=== PATIENT | male | born 1940 | race Hispanic/Latino ===

== ENCOUNTER 2017-10-14 20:31 | Inpatient (IN) | payer MEDICARE ==
[~2017-10-14] VITALS: Ht 160 cm; Wt 64.6 kg
[~2017-10-14 20:31] MED LIST: AMIODARONE HCL200 MG PO; BUPROPION HCL100 MG PO; CLOPIDOGREL75 MG PO; ELIQUIS PO; FENOFIBRATE145 MG PO; FLAGYL250 MG; GABAPENTIN300 MG PO; GLIMEPIRIDE2 MG PO; JANUMET 50-5001 EACH PO; JANUMET XR 50-1 EACH PO; LEVAQUIN500 MG PO; LEVOTHYROXINE50 MCG PO; LISINOPRIL10 MG PO; MECLIZINE HCL12.5 MG PO; METOPROLOL SUCC50 MG PO; NAMENDA10 MG PO; PANTOPRAZOLE SO40 MG PO; PRAVASTATIN SOD40 MG PO; VIIBRYD40 MG PO
[2017-10-14 21:46] LABS: BASOPHILS % 0.4 % (0.0-1.0); EOSINOPHILS % 0.3 % (0.0-6.0); HEMOGLOBIN 13.9 g/dL (14.0-18.0); LYMPHOCYTES # (AUTO) 0.7 (1.0-3.2); LYMPHOCYTES % 9.8 % (18.0-39.1); MEAN CORPUSCULAR HEMOGLOBIN 29.3 pg (28-32); MEAN CORPUSCULAR HGB CONC 33.1 g/dL (31-35); MEAN CORPUSCULAR VOLUME 88.4 fL (81-99); MONOCYTES # (AUTO) 0.5 (0.2-0.8); MONOCYTES % 6.9 % (4.4-11.3); NEUTROPHILS % 81.4 % (38.7-80.0); PLATELET COUNT 592 x10e3/uL (140-360); RED BLOOD COUNT 4.75 x10e6/uL (4.3-5.7); RED CELL DISTRIBUTION WIDTH 14.9 % (11.7-14.4)
[2017-10-14 21:54] LABS: ALBUMIN 2.9 g/dL (3.5-5.0); ALBUMIN/GLOBULIN RATIO 0.7 (0.8-2.0); ANION GAP 16.1 mmol/L (8-16); CALCIUM 9.7 mg/dL (8.4-10.2); CREATININE, SERUM 2.07 mg/dL (0.72-1.25); POTASSIUM 4.1 mmol/L (3.5-5.1)
[2017-10-14 22:00] LABS: CREATINE KINASE MB 1.4 ng/mL (0.00-5.00)
--- NOTE | 2017-10-14 22:31 | Diagnostic Imaging Report ---
EXAMINATION: Head CT without contrast. HISTORY:Behavioral changes, altered mental status. COMPARISON:Multiple prior studies, most recent CT brain from 09/09/2017. TECHNIQUE: Multidetector axial images were obtained from the foramen magnum to the vertex without contrast. The images were reconstructed using brain and bone algorithms. Thin section brain images were reformatted into coronal and sagittal planes. Intravenous contrast: None IMAGE QUALITY: Acceptable. FINDINGS: Skull/scalp: Right parietal scalp thickened soft tissue possibly represents scar. Parenchyma: Nonspecific few, scattered supratentorial white matter patchy hypodensity are likely related to small vessel ischemic changes. No acute hemorrhage, mass or acute major vascular territorial infarct. Arteries: Atherosclerotic calcification in bilateral carotid siphon and V4 segment of the vertebral arteries. Dural sinuses: No abnormal density suggestive of thrombosis. Ventricles: No hydrocephalus or displacement. Extra-axial spaces: No abnormal density. Brain volume: Generalized age-related cerebral volume loss. Craniocervical junction: No mass, Chiari malformation, or basilar invagination. Sella: No mass. Paranasal/mastoid sinuses: Imaged portions unremarkable. IMPRESSION: No acute intracranial abnormality. Chronic findings: Generalized age-related cerebral volume loss. Mild supratentorial white matter microvascular ischemic changes. Signed by: Dr. Guillermina Berger M.D. on 10/14/2017 10:27 PM
--- NOTE | 2017-10-14 22:35 | Diagnostic Imaging Report ---
EXAMINATION: CHEST SINGLE (PORTABLE) INDICATION: Cough. COMPARISON: 05/29/2017 FINDINGS: TUBES and LINES: AICD is intact. LUNGS: Lungs are well inflated. Right lower lobe airspace opacity with air bronchogram compatible with pneumonia PLEURA: No pleural effusion or pneumothorax. HEART AND MEDIASTINUM: The cardiomediastinal silhouette is unremarkable. There are atherosclerotic calcifications within the aorta. Midline sternotomy wires are intact. BONES AND SOFT TISSUES: No acute osseous lesion. Soft tissues are unremarkable. UPPER ABDOMEN: No free air under the diaphragm. IMPRESSION: Right lung base airspace disease compatible with pneumonia Signed by: Dr. Saroj Collins M.D. on 10/14/2017 10:31 PM
[2017-10-14 22:41] LABS: KETONES,URINE TRACE (NEGATIVE); LEUKOCYTE ESTERASE ,URINE TRACE (NEGATIVE); NITRITE,URINE NEGATIVE (NEGATIVE); URINE UROBILINOGEN 12 mg/dL (0.2 - 1)
[2017-10-14 22:45] LABS: BILIRUBIN,URINE 2+ (NEGATIVE); CLARITY,URINE CLOUDY (CLEAR); COLOR,URINE AMBER (YELLOW); PROTEIN,URINE DIPSTICK 2+ (NEGATIVE)
[2017-10-14 22:54] LABS: AMORPHOUS SEDIMENT,URINE MODERATE (FEW); BACTERIA,URINE MODERATE /HPF; EPITHELIAL CELLS,URINE FEW /LPF; WBC,URINE (MAN) 21-50 /HPF (0-5)
[2017-10-14] MEDS ORDERED: HALOPERIDOL LACTATE 5 MG/ML VIAL ONE (23:05)
[2017-10-14] MEDS ORDERED: HALOPERIDOL LACTATE 5 MG/ML VIAL IM ONE (23:15)
[2017-10-14] MEDS ORDERED: SODIUM CHLORIDE FLUSH 10 ML SYR INJ PRN (23:15)
[2017-10-14] MEDS ORDERED: DEXTROSE 50% SYRINGE 50 ML IV PRN (23:15)
[2017-10-14] MEDS ORDERED: AZITHROMYCIN 500MG/SOD CHL 0.9% 250ML BAG IV SCH (23:15)
[2017-10-14] MEDS ORDERED: MECLIZINE HCL 12.5 MG TAB PO PRN (23:15)
[2017-10-14] MEDS: CEFTRIAXONE SOD 1 GM VIAL IV SCH (23:44)
[2017-10-14] MEDS: SODIUM CHLORIDE 0.9% 1000ML 1,000 ML IV SCH (23:44)
[2017-10-15] MEDS: AZITHROMYCIN 500MG/NS 250 ML 250 ML IV SCH ×2 (00:16→23:29)
[2017-10-15 01:10] VITALS: BP 140/79
[2017-10-15 01:42] VITALS: BP 140/79
[2017-10-15 01:53] VITALS: BP 140/79
[2017-10-15 06:02] LABS: BASOPHILS % 0.5 % (0.0-1.0); EOSINOPHILS # (AUTO) 0.1 (0.0-0.4); EOSINOPHILS % 0.9 % (0.0-6.0); HEMATOCRIT 34.7 % (38.2-49.6); HEMOGLOBIN 11.5 g/dL (14.0-18.0); LYMPHOCYTES # (AUTO) 0.9 (1.0-3.2); LYMPHOCYTES % 14.2 % (18.0-39.1); MEAN CORPUSCULAR HEMOGLOBIN 29.2 pg (28-32); MEAN CORPUSCULAR HGB CONC 33.1 g/dL (31-35); MEAN CORPUSCULAR VOLUME 88.1 fL (81-99); MONOCYTES # (AUTO) 0.5 (0.2-0.8); NEUTROPHILS # (AUTO) 4.8 (2.1-6.9); NEUTROPHILS % 75.5 % (38.7-80.0); PLATELET COUNT 496 x10e3/uL (140-360); RED BLOOD COUNT 3.94 x10e6/uL (4.3-5.7); RED CELL DISTRIBUTION WIDTH 14.9 % (11.7-14.4)
[2017-10-15 06:05] VITALS: BP 122/52
[2017-10-15 06:20] LABS: ALBUMIN 2.4 g/dL (3.5-5.0); ALBUMIN/GLOBULIN RATIO 0.7 (0.8-2.0); ANION GAP 11.5 mmol/L (8-16); CALCIUM 8.8 mg/dL (8.4-10.2); CREATININE, SERUM 1.58 mg/dL (0.72-1.25); POTASSIUM 3.5 mmol/L (3.5-5.1)
[2017-10-15] MEDS: INSULIN REGULAR, HUMAN 100 UNIT/1 ML 3ML VIAL SQ SCH ×4 (07:30→21:00)
[2017-10-15 07:53] VITALS: BP 154/77
--- NOTE | 2017-10-15 07:54 | History and Physical ---
TIME: 7 a.m. CHIEF COMPLAINT: Confusion. HISTORY OF PRESENT ILLNESS: This is a 77-year-old man with confusion, and brought to the hospital. Found to have a urinary tract infection. He is admitted for further evaluation and management. Overnight, patient was agitated and attempted to get out of bed and get out of a window from his room. He was given Haldol. PAST MEDICAL HISTORY: Altered mental status, fall, acute kidney injury in the setting of chronic kidney disease, stage 3, diabetes mellitus, type 2, Alzheimer dementia, hypothyroidism, coronary artery disease with history of coronary artery bypass grafting, sick sinus syndrome, status post permanent pacemaker placement, hypertension, unspecified psychosis, dementia with acute psychosis, severe anemia, cardiac arrhythmia. PAST SURGICAL HISTORY: Permanent pacemaker placement. ALLERGIES: PER ELECTRONIC MEDICAL RECORD. FAMILY HISTORY/SOCIAL HISTORY: No alcohol, illicits or cigarettes. MEDICATIONS: Per electronic medical record. REVIEW OF SYSTEMS: Unreliable. PHYSICAL EXAMINATION VITAL SIGNS: Have been reviewed. GENERAL: A tired-appearing man resting in bed. HEENT: Anicteric. CARDIOVASCULAR: Normal S1 and S2. LUNGS: Moderate breath sounds. ABDOMEN: Soft and nondistended. He has tenderness in the suprapubic region. : He has a Hernadez in place with a small amount of blood at the Hernadez insertion site. EXTREMITIES: No edema. SKIN: Dry. PSYCHIATRIC: Flat affect. NEUROLOGICAL: Alert but confused. Moves all extremities. LABS: Reviewed. MEDICATIONS: Reviewed. ASSESSMENT: A 77-year-old man with: 1. Acute metabolic encephalopathy/acute delirium secondary to urinary tract infection. 2. Urinary tract infection. 3. Acute transaminitis. 4. Dementia with acute psychosis. 5. Acute kidney injury in the setting of chronic kidney disease, stage 3. 6. Right lung pneumonia. 7. Cardiac arrhythmia. PLAN 1. Continue azithromycin and ceftriaxone for pneumonia. 2. Continue ceftriaxone for urinary tract infection. Follow up cultures. 3. Haldol p.r.n. for agitation, acute psychosis and delirium. 4. Continue apixaban and amiodarone and metoprolol for cardiac arrhythmia treatment. 5. Continue memantine and bupropion for dementia and mood. 6. Continue on Protonix for GI prophylaxis with apixaban use. 7. Physical therapy consultation. Will attempt to reach family again. Job#: [id number] GHAZALA
[2017-10-15] MEDS: APIXABAN 5 MG TABLET PO SCH ×2 (09:00→17:00)
[2017-10-15] MEDS: FENOFIBRATE 145 MG TAB PO SCH (09:00)
[2017-10-15] MEDS ORDERED: NON-FORMULARY MEDICATION (Vilazodone Hydrochloride (Viibryd) 40 MG) PO SCH (09:00)
[2017-10-15] MEDS: PANTOPRAZOLE SOD 40 MG TABEC PO SCH (09:00)
[2017-10-15] MEDS: BUPROPION HCL 150 MG TABCR PO SCH (09:00)
[2017-10-15] MEDS ORDERED: FENOFIBRATE 145 MG TAB PO SCH (09:00)
[2017-10-15] MEDS: VILAZODONE 40 MG PO SCH (09:00)
[2017-10-15] MEDS: CLOPIDOGREL BISULFATE 75 MG TAB PO SCH (09:00)
[2017-10-15] MEDS: SODIUM CHLORIDE 0.9% 1000ML 1,000 ML IV SCH (12:31)
[2017-10-15 14:06] LABS: CREATINE KINASE MB 2.3 ng/mL (0.00-5.00)
[2017-10-15 20:00] VITALS: BP 149/81
[2017-10-15] MEDS: MEMANTINE 10 MG TAB PO SCH (21:30)
[2017-10-15] MEDS: LEVOTHYROXINE SODIUM 50 MCG TAB PO SCH (21:30)
[2017-10-15] MEDS: PRAVASTATIN 20 MG TAB PO SCH (21:30)
[2017-10-15] MEDS: GABAPENTIN 300 MG CAP PO SCH (21:30)
[2017-10-15] MEDS: METOPROLOL SUCCINATE 50 MG TAB XL PO SCH (21:30)
[2017-10-15] MEDS: AMIODARONE HCL 200 MG TAB PO SCH (21:30)
[2017-10-15] MEDS: HALOPERIDOL 5 MG TAB PO PRN (21:35)
[2017-10-15] MEDS: CEFTRIAXONE SOD 1 GM VIAL IV SCH (23:15)
[2017-10-15] MEDS: MORPHINE SULFATE 2 MG/ML SYR IV PRN (23:16)
[2017-10-16] VITALS: BP 146/77
[2017-10-16] MEDS: SODIUM CHLORIDE 0.9% 1000ML 1,000 ML IV SCH ×2 (05:58→13:34)
[2017-10-16] MEDS: LEVOTHYROXINE SODIUM 50 MCG TAB PO SCH (05:59)
[2017-10-16] MEDS: INSULIN REGULAR, HUMAN 100 UNIT/1 ML 3ML VIAL SQ SCH ×4 (07:30→21:00)
[2017-10-16 07:53] VITALS: BP 132/66
[2017-10-16] MEDS: APIXABAN 5 MG TABLET PO SCH ×2 (09:00→17:00)
[2017-10-16] MEDS: PANTOPRAZOLE SOD 40 MG TABEC PO SCH (09:00)
[2017-10-16] MEDS: BUPROPION HCL 150 MG TABCR PO SCH (09:00)
[2017-10-16] MEDS: FENOFIBRATE 145 MG TAB PO SCH (09:00)
[2017-10-16] MEDS: CLOPIDOGREL BISULFATE 75 MG TAB PO SCH (09:00)
[2017-10-16] MEDS: VILAZODONE 40 MG PO SCH (09:00)
[2017-10-16 13:09] VITALS: BP 154/80
[2017-10-16 17:35] VITALS: BP 115/67
[2017-10-16] MEDS: HALOPERIDOL 5 MG TAB PO PRN (19:00)
[2017-10-16 20:00] VITALS: BP 163/74
[2017-10-16] MEDS: MEMANTINE 10 MG TAB PO SCH (21:00)
[2017-10-16] MEDS: GABAPENTIN 300 MG CAP PO SCH (21:00)
[2017-10-16] MEDS: AMIODARONE HCL 200 MG TAB PO SCH (21:00)
[2017-10-16] MEDS: PRAVASTATIN 20 MG TAB PO SCH (21:00)
[2017-10-16] MEDS: METOPROLOL SUCCINATE 50 MG TAB XL PO SCH (21:00)
[2017-10-16] MEDS: MORPHINE SULFATE 2 MG/ML SYR IV PRN (23:00)
[2017-10-16] MEDS: CEFTRIAXONE SOD 1 GM VIAL IV SCH (23:15)
[2017-10-16] MEDS: AZITHROMYCIN 500MG/NS 250 ML 250 ML IV SCH (23:16)
[2017-10-17] VITALS: BP 148/66
[2017-10-17 04:00] VITALS: BP 142/60
[2017-10-17] MEDS: SODIUM CHLORIDE 0.9% 1000ML 1,000 ML IV SCH ×2 (04:31→20:00)
[2017-10-17] MEDS: LEVOTHYROXINE SODIUM 50 MCG TAB PO SCH (05:26)
[2017-10-17 07:00] VITALS: BP 145/65
[2017-10-17] MEDS: INSULIN REGULAR, HUMAN 100 UNIT/1 ML 3ML VIAL SQ SCH ×4 (07:30→21:00)
[2017-10-17] MEDS: FENOFIBRATE 145 MG TAB PO SCH (09:35)
[2017-10-17] MEDS: APIXABAN 5 MG TABLET PO SCH ×2 (09:35→16:48)
[2017-10-17] MEDS: CLOPIDOGREL BISULFATE 75 MG TAB PO SCH (09:35)
[2017-10-17] MEDS: BUPROPION HCL 150 MG TABCR PO SCH (09:35)
[2017-10-17] MEDS: VILAZODONE 40 MG PO SCH (09:35)
[2017-10-17] MEDS: PANTOPRAZOLE SOD 40 MG TABEC PO SCH (09:35)
[2017-10-17 10:51] VITALS: BP 145/65
--- NOTE | 2017-10-17 11:06 | Progress Note ---
DATE: October 16, 2017 at 2:15 p.m. SUBJECTIVE: Overnight less confused. REVIEW OF SYSTEMS: Denies any chest pain. OBJECTIVE VITAL SIGNS: Reviewed. GENERAL APPEARANCE: A tired-appearing woman resting in the bed. HEENT: Anicteric. CARDIOVASCULAR: Normal S1 and S2. No murmurs. LUNGS: Reduced breath sounds at the bases. ABDOMEN: Soft. He has suprapubic area mild tenderness, improved. : : Hernadez catheter. EXTREMITIES: There is no edema. NEUROLOGIC: Alert and oriented x2. Moving all extremities. SKIN: Dry. PSYCHIATRIC: Flat affect. LABS: Reviewed. MEDICATIONS: Reviewed. ASSESSMENT: A 77-year-old man. 1. Acute metabolic encephalopathy/acute delirium secondary to urinary tract infection. 2. Urinary tract infection. 3. Acute transaminitis. 4. Dementia with acute psychosis. 5. Right lung pneumonia. 6. Acute kidney injury in the setting of chronic kidney disease, stage 3. 7. Cardiac arrhythmia. PLAN: 1. Continue IV antibiotics for pneumonia and urinary tract infection. 2. Follow up cultures. 3. Continue p.r.n. Haldol for agitation. 4. Continue memantine and bupropion and mood stabilizers. 5. Continue current care and follow up cultures. 6. I have discussed the case extensively with multiple family members in the patient's room. 7. Continue Apixaban for cardiac arrhythmia. Job#: [id number]
[2017-10-17 11:39] LABS: ANION GAP 11.3 mmol/L (8-16); BLOOD UREA NITROGEN 11 mg/dL (7-26); BUN/CREATININE RATIO 12 (6-25); CALCIUM 8.3 mg/dL (8.4-10.2); CARBON DIOXIDE 23 mmol/L (22-29); CHLORIDE 107 mmol/L (98-107); CREATININE, SERUM 0.91 mg/dL (0.72-1.25); EST GLOMERULAR FILTRATION RATE > 60 ML/MIN (60-); GLUCOSE 74 mg/dL (74-118); POTASSIUM 3.3 mmol/L (3.5-5.1); SODIUM 138 mmol/L (136-145)
[2017-10-17 16:40] VITALS: BP 151/68
[2017-10-17 20:00] VITALS: BP 152/77
[2017-10-17] MEDS: AMIODARONE HCL 200 MG TAB PO SCH (21:00)
[2017-10-17] MEDS: METOPROLOL SUCCINATE 50 MG TAB XL PO SCH (21:00)
[2017-10-17] MEDS: MEMANTINE 10 MG TAB PO SCH (21:30)
[2017-10-17] MEDS: HALOPERIDOL 5 MG TAB PO PRN (21:30)
[2017-10-17] MEDS: GABAPENTIN 300 MG CAP PO SCH (21:30)
[2017-10-17] MEDS: PRAVASTATIN 20 MG TAB PO SCH (21:30)
[2017-10-17] MEDS: CEFTRIAXONE SOD 1 GM VIAL IV SCH (23:20)
[2017-10-18] VITALS: BP 144/84
[2017-10-18] MEDS: AZITHROMYCIN 500MG/NS 250 ML 250 ML IV SCH ×2 (00:15→23:45)
[2017-10-18] MEDS: MORPHINE SULFATE 5 MG/ML VIAL IV PRN ×2 (00:33→21:36)
[2017-10-18 02:08] VITALS: BP 151/68
[2017-10-18 04:00] VITALS: BP 150/81
--- NOTE | 2017-10-18 04:43 | Progress Note ---
DATE: October 17, 2017 TIME: 11:17 a.m. OVERNIGHT: No events. REVIEW OF SYSTEMS: Denies any dizziness. OBJECTIVE VITAL SIGNS: Reviewed. GENERAL APPEARANCE: A tired-appearing man resting in the bed. HEENT: Anicteric. CARDIOVASCULAR: Normal S1 and S2. LUNGS: Moderate breath sounds. ABDOMEN: Soft. He has suprapubic tenderness that is resolved. EXTREMITIES: No edema. SKIN: Dry. PSYCHIATRIC: Flat affect. NEUROLOGIC: Alert and oriented times 2. LABS: Reviewed. MEDICATIONS: Reviewed. ASSESSMENT AND PLAN: A 77-year-old man 1. Acute metabolic encephalopathy/acute delirium secondary to urinary tract infection. 2. Urinary tract infection. 3. Acute transaminitis. 4. Dementia with acute psychosis. 5. Right lung pneumonia. 6. Acute kidney injury in the setting of chronic kidney disease, stage 3. 7. Cardiac arrhythmia. PLAN 1. Continue IV antibiotics for pneumonia and urinary tract infection. 2. Follow up cultures. 3. Continue p.r.n. Haldol for agitation. 4. Continue memantine, bupropion and mood stabilizers. 5. Continue physical therapy. 6. Continue apixaban for cardiac arrhythmia. 7. Discharge planning. Job#: [id number]
[2017-10-18] MEDS: LEVOTHYROXINE SODIUM 50 MCG TAB PO SCH (05:24)
[2017-10-18] MEDS: SODIUM CHLORIDE 0.9% 1000ML 1,000 ML IV SCH ×2 (07:11→20:31)
[2017-10-18] MEDS: INSULIN REGULAR, HUMAN 100 UNIT/1 ML 3ML VIAL SQ SCH ×4 (07:30→21:00)
[2017-10-18 08:00] VITALS: BP 156/74
[2017-10-18] MEDS: VILAZODONE 40 MG PO SCH (09:00)
--- NOTE | 2017-10-18 09:34 | Diagnostic Imaging Report ---
PROCEDURE:X-RAY ABDOMEN - KUB COMPARISON:None. INDICATIONS:MID ABDOMINAL TENDERNESS FINDINGS: There is a non-obstructed bowel-gas pattern. There are no calcifications projected over the renal shadows, expected course of the ureters or bladder. There are no acute osseous abnormalities. Degenerative changes of the lumbar spine. Atherosclerotic calcifications. The lung bases are clear. CONCLUSION: No acute radiographic abnormality. Dictated by: Xu Pope M.D. on 10/18/2017 at 9:43 Electronically approved by: Xu Pope M.D. on 10/18/2017 at 9:43
[2017-10-18] MEDS: BUPROPION HCL 150 MG TABCR PO SCH (09:58)
[2017-10-18] MEDS: FENOFIBRATE 145 MG TAB PO SCH (09:58)
[2017-10-18] MEDS: PANTOPRAZOLE SOD 40 MG TABEC PO SCH (09:58)
[2017-10-18] MEDS: APIXABAN 5 MG TABLET PO SCH ×2 (09:58→18:04)
[2017-10-18] MEDS: CLOPIDOGREL BISULFATE 75 MG TAB PO SCH (09:58)
[2017-10-18] MEDS: HALOPERIDOL 5 MG TAB PO PRN ×2 (09:58→18:04)
--- NOTE | 2017-10-18 13:01 | Progress Note ---
DATE: October 18, 2017 TIME: 8:40 a.m. OVERNIGHT: No events. REVIEW OF SYSTEMS: Underlying. OBJECTIVE VITAL SIGNS: Reviewed. GENERAL APPEARANCE: A tired-appearing man, resting in the bed. HEENT: Anicteric. CARDIOVASCULAR: Normal S1 and S2. LUNGS: Moderate breath sounds. ABDOMEN: Soft. He has tenderness in the abdominal region. EXTREMITIES: No edema. SKIN: Dry. PSYCHIATRIC: Flat affect. NEUROLOGIC: Alert and oriented x2. LABS: Reviewed. MEDICATIONS: Reviewed. ASSESSMENT AND PLAN: A 77-year-old man: 1. Acute metabolic encephalopathy/acute delirium secondary to urinary tract infection. 2. Urinary tract infection. 3. Acute transaminitis. 4. Dementia with acute psychosis. 5. Right lung pneumonia. 6. Acute kidney injury in the setting of chronic kidney disease, stage 3. 7. Cardiac arrhythmia. 8. Abdominal pain. PLAN 1. Get KUB. 2. Continue IV antibiotics. 3. Continue p.r.n. Haldol. 4. Continue physical therapy. 5. Continue mood stabilizer. 6. Continue apixaban for cardiac arrhythmia. 7. Discharge planning. 8. Recheck potassium level now. Job#: [id number] PAT
[2017-10-18 15:59] VITALS: BP 141/94
[2017-10-18 20:00] VITALS: BP 140/68
[2017-10-18] MEDS: PRAVASTATIN 20 MG TAB PO SCH (22:00)
[2017-10-18] MEDS: METOPROLOL SUCCINATE 50 MG TAB XL PO SCH (22:00)
[2017-10-18] MEDS: MEMANTINE 10 MG TAB PO SCH (22:37)
[2017-10-18] MEDS: AMIODARONE HCL 200 MG TAB PO SCH (22:37)
[2017-10-18] MEDS: GABAPENTIN 300 MG CAP PO SCH (22:37)
[2017-10-18] MEDS: CEFTRIAXONE SOD 1 GM VIAL IV SCH (23:00)
[2017-10-19] VITALS (9 sets, daily range): BP systolic 105–139; BP diastolic 54–73
[2017-10-19] MEDS: LEVOTHYROXINE SODIUM 50 MCG TAB PO SCH (05:34)
[2017-10-19] MEDS: HALOPERIDOL 5 MG TAB PO PRN (05:34)
[2017-10-19] MEDS: INSULIN REGULAR, HUMAN 100 UNIT/1 ML 3ML VIAL SQ SCH ×4 (07:30→21:00)
[2017-10-19] MEDS: VILAZODONE 40 MG PO SCH (09:00)
[2017-10-19] MEDS: SODIUM CHLORIDE 0.9% 1000ML 1,000 ML IV SCH (09:51)
[2017-10-19] MEDS: APIXABAN 5 MG TABLET PO SCH ×2 (09:59→17:00)
[2017-10-19] MEDS: CLOPIDOGREL BISULFATE 75 MG TAB PO SCH (09:59)
[2017-10-19] MEDS: PANTOPRAZOLE SOD 40 MG TABEC PO SCH (09:59)
[2017-10-19] MEDS: FENOFIBRATE 145 MG TAB PO SCH (09:59)
[2017-10-19] MEDS: QUETIAPINE FUMARATE 25 MG TAB PO SCH ×3 (09:59→23:55)
[2017-10-19] MEDS: BUPROPION HCL 150 MG TABCR PO SCH (09:59)
--- NOTE | 2017-10-19 18:23 | Progress Note ---
DATE: October 19, 2017 TIME OF SERVICE: At 7:15 a.m. SUBJECTIVE: Overnight no events REVIEW OF SYSTEMS: Unreliable. OBJECTIVE VITAL SIGNS: Reviewed. GENERAL APPEARANCE: A tired-appearing man resting in the bed. CARDIOVASCULAR: Normal S1 and S2. LUNGS: Moderate breath sounds, ABDOMEN: Soft and nontender. Nondistended. EXTREMITIES: There is no edema. NEUROLOGIC: Alert and oriented x1. SKIN: Dry. PSYCHIATRIC: Flat affect. LABS: Reviewed. MEDICATIONS: Reviewed. ASSESSMENT : A 77-year-old man. 1. Acute metabolic encephalopathy/acute delirium secondary to urinary tract infection. 2. Urinary tract infection. 3. Acute transaminitis. 4. Dementia with acute psychosis. 5. Right lung pneumonia. 6. Acute kidney injury in the setting of chronic kidney disease, stage 3. 7. Cardiac arrhythmia. 8. Abdominal pain. PLAN 1. Continue supportive care. 2. Continue antibiotics. 3. Continue physical therapy. 4. Skilled facility placement order. 5. Continue Apixaban for cardiac arrhythmia. 6. KUB revealed no abnormal findings. 7. Prophylaxis: Continue regimen. DISPOSITION: Skilled facility placement. Job#: [id number]
[2017-10-19] MEDS: MORPHINE SULFATE 5 MG/ML VIAL IV PRN (20:43)
[2017-10-19] MEDS: METOPROLOL SUCCINATE 50 MG TAB XL PO SCH (21:00)
[2017-10-19] MEDS: MEMANTINE 10 MG TAB PO SCH (21:00)
[2017-10-19] MEDS: AMIODARONE HCL 200 MG TAB PO SCH (21:00)
[2017-10-19] MEDS: GABAPENTIN 300 MG CAP PO SCH (21:00)
[2017-10-19] MEDS: PRAVASTATIN 20 MG TAB PO SCH (21:00)
[2017-10-20] VITALS (34 sets, daily range): BP systolic 85–181; BP diastolic 49–89
[2017-10-20] MEDS: CEFTRIAXONE SOD 1 GM VIAL IV SCH ×2 (00:42→23:15)
[2017-10-20] MEDS: SODIUM CHLORIDE 0.9% 1000ML 1,000 ML IV SCH ×2 (00:45→12:12)
[2017-10-20] MEDS: AZITHROMYCIN 500MG/NS 250 ML 250 ML IV SCH ×2 (00:45→23:45)
[2017-10-20] MEDS: HALOPERIDOL 5 MG TAB PO PRN (00:50)
[2017-10-20] MEDS: LEVOTHYROXINE SODIUM 50 MCG TAB PO SCH (05:20)
[2017-10-20] MEDS: INSULIN REGULAR, HUMAN 100 UNIT/1 ML 3ML VIAL SQ SCH ×4 (07:30→21:00)
[2017-10-20] MEDS: PANTOPRAZOLE SOD 40 MG TABEC PO SCH (09:00)
[2017-10-20] MEDS: BUPROPION HCL 150 MG TABCR PO SCH (09:00)
[2017-10-20] MEDS: CLOPIDOGREL BISULFATE 75 MG TAB PO SCH (09:00)
[2017-10-20] MEDS: VILAZODONE 40 MG PO SCH (09:00)
[2017-10-20] MEDS: APIXABAN 5 MG TABLET PO SCH (09:00)
[2017-10-20] MEDS: FENOFIBRATE 145 MG TAB PO SCH (09:00)
[2017-10-20] MEDS: QUETIAPINE FUMARATE 25 MG TAB PO SCH ×2 (09:00→17:00)
[2017-10-20] MEDS ORDERED: SODIUM CHLORIDE 0.9% 1000ML 1,000 ML ONE (09:45)
[2017-10-20 09:54] LABS: ABG PCO2 32 mmHg (41-51); ABG PH 7.35 (7.31-7.41); ABG PO2 86 mmHg (80-105)
[2017-10-20 09:55] LABS: ABG HCO3 18 mmol/L (23-28)
[2017-10-20 09:56] LABS: BASOPHILS % 0.1 % (0.0-1.0); HEMATOCRIT 34.7 % (38.2-49.6); HEMOGLOBIN 11.6 g/dL (14.0-18.0); LYMPHOCYTES # (AUTO) 0.8 (1.0-3.2); LYMPHOCYTES % 5.1 % (18.0-39.1); MEAN CORPUSCULAR HEMOGLOBIN 29.5 pg (28-32); MEAN CORPUSCULAR HGB CONC 33.4 g/dL (31-35); MEAN CORPUSCULAR VOLUME 88.3 fL (81-99); MONOCYTES # (AUTO) 0.8 (0.2-0.8); NEUTROPHILS # (AUTO) 13.7 (2.1-6.9); NEUTROPHILS % 88.8 % (38.7-80.0); PLATELET COUNT 474 x10e3/uL (140-360); RED BLOOD COUNT 3.93 x10e6/uL (4.3-5.7); RED CELL DISTRIBUTION WIDTH 14.9 % (11.7-14.4)
[2017-10-20 10:16] LABS: ANION GAP 17.9 mmol/L (8-16); BLOOD UREA NITROGEN 15 mg/dL (7-26); BUN/CREATININE RATIO 15 (6-25); CALCIUM 8.9 mg/dL (8.4-10.2); CARBON DIOXIDE 20 mmol/L (22-29); CHLORIDE 99 mmol/L (98-107); CREATININE, SERUM 0.97 mg/dL (0.72-1.25); EST GLOMERULAR FILTRATION RATE > 60 ML/MIN (60-); GLUCOSE 124 mg/dL (74-118); POTASSIUM 3.9 mmol/L (3.5-5.1); SODIUM 133 mmol/L (136-145)
[2017-10-20 10:22] LABS: CREATINE KINASE MB 2.3 ng/mL (0.00-5.00)
--- NOTE | 2017-10-20 12:07 | Diagnostic Imaging Report ---
PROCEDURE: A single AP view of the chest. COMPARISON: Portable chest 10/14/2017. INDICATIONS: SHORTNESS OF BREATH FINDINGS: Lines/tubes: Left chest cardiac device with lead projecting over the expected region of the right ventricle. Lungs: Bilateral diffuse airspace opacities. No parenchymal mass. Pleura: Small bilateral pleural effusions. No pneumothorax. Heart and mediastinum: The heart and the mediastinum are unremarkable. Bones: No acute bony abnormality. Degenerative changes of the thoracic spine. Median sternotomy wires. IMPRESSION: Bilateral airspace opacities may represent pneumonia or edema. Dictated by: Xu Pope M.D. on 10/20/2017 at 12:15 Electronically approved by: Xu Pope M.D. on 10/20/2017 at 12:15
[2017-10-20] MEDS ORDERED: WATER STERILE 10 ML VIAL ONE (13:59)
[2017-10-20] MEDS ORDERED: SUCCINYLCHOLINE CHLORIDE 20 MG/ML 10ML VIAL ONE (13:59)
[2017-10-20] MEDS ORDERED: VECURONIUM BROMIDE FOR INJ 20 MG VIAL ONE (13:59)
[2017-10-20] MEDS ORDERED: IOPAMIDOL 370 MG/ML 200 ML INFUS..BTL INJ ONE ×3 (15:20→16:25)
[2017-10-20] MEDS ORDERED: LIDOCAINE HCL 2% LOCAL 20 ML VIAL ONE (15:20)
[2017-10-20] MEDS ORDERED: HEPARIN SOD/SOD CHLORIDE 2,000 ML ONE (15:20)
[2017-10-20] MEDS ORDERED: SODIUM CHLORIDE 0.9% 1000ML 1,000 ML IV SCH ×3 (15:45→18:00)
[2017-10-20 15:48] LABS: HEMATOCRIT 32.4 % (38.2-49.6); HEMOGLOBIN 10.4 g/dL (14.0-18.0); MEAN CORPUSCULAR HEMOGLOBIN 29.2 pg (28-32); MEAN CORPUSCULAR HGB CONC 32.1 g/dL (31-35); PLATELET COUNT 521 x10e3/uL (140-360); RED BLOOD COUNT 3.56 x10e6/uL (4.3-5.7)
[2017-10-20 15:53] LABS: INR 1.86; PROTHROMBIN TIME 22.4 seconds (11.9-14.5)
--- NOTE | 2017-10-20 15:59 | Diagnostic Imaging Report ---
PROCEDURE: A single AP view of the chest. COMPARISON: Patients [facility], DX, CHEST SINGLE (PORTABLE), 10/20/2017, 11:25. INDICATIONS: ETT TUBE PLACEMENT, CODE STEMI, CENTRAL LINE PLACEMENT FINDINGS: See impression. IMPRESSION: 1. interval placement of right IJ line, with distal tip projecting in the proximal atrium. Interval placement of endotracheal tube, with distal tip projecting approximately 4.7 cm above the maggi. Interval placement of enteric tube, with distal tip projecting in the stomach fundus. Unchanged left upper chest single lead cardiac device 2. Bilateral interstitial and patchy alveolar opacities extending from the cesar, likely representing pulmonary edema/fluid overload. Phillip Torrez M.D. Dictated by: Phillip Torrez M.D. on 10/20/2017 at 16:07 Electronically approved by: Phillip Torrez M.D. on 10/20/2017 at 16:07
[2017-10-20 16:01] LABS: ALANINE AMINOTRANSFERASE 101 IU/L (0-55); ALBUMIN 1.7 g/dL (3.5-5.0); ALBUMIN/GLOBULIN RATIO 0.6 (0.8-2.0); ALKALINE PHOSPHATASE 61 IU/L (40-150); ANION GAP 17.2 mmol/L (8-16); BLOOD UREA NITROGEN 15 mg/dL (7-26); BUN/CREATININE RATIO 15 (6-25); CALCIUM 7.8 mg/dL (8.4-10.2); CARBON DIOXIDE 15 mmol/L (22-29); CHLORIDE 103 mmol/L (98-107); CREATININE, SERUM 1.01 mg/dL (0.72-1.25); EST GLOMERULAR FILTRATION RATE > 60 ML/MIN (60-); GLUCOSE 144 mg/dL (74-118); POTASSIUM 4.2 mmol/L (3.5-5.1); SODIUM 131 mmol/L (136-145)
[2017-10-20] MEDS ORDERED: HEPARIN SOD (PORCINE) 1000 UNIT/ML 30ML ONE (16:01)
[2017-10-20 16:02] LABS: CALCIUM 7.9 mg/dL (8.4-10.2); MAGNESIUM 1.3 MG/DL (1.3-2.1)
[2017-10-20 16:14] LABS: B-TYPE NATRIURETIC PEPTIDE2 858.3 pg/mL (0-100)
[2017-10-20 17:35] LABS: LYMPHOCYTES % (MANUAL) 3 % (19-48); MONOCYTES % (MANUAL) 3 % (3.4-9.0); NEUTROPHILS % (MANUAL) 94 % (40-74)
[2017-10-20 17:41] LABS: PLATELET ESTIMATE MODERATELY INCREASED; PLATELET MORPHOLOGY COMMENT NORMAL
[2017-10-20 17:43] LABS: ANISOCYTOSIS SLIGHT; POIKILOCYTOSIS SLIGHT; RBC MORPHOLOGY COMMENT NORMAL
[2017-10-20 20:23] LABS: CREATINE KINASE MB 2.2 ng/mL (0.00-5.00)
[2017-10-20] MEDS: MEMANTINE 10 MG TAB PO SCH (21:00)
[2017-10-20] MEDS: PRAVASTATIN 20 MG TAB PO SCH (21:00)
[2017-10-20] MEDS: METOPROLOL SUCCINATE 50 MG TAB XL PO SCH (21:00)
[2017-10-20] MEDS: GABAPENTIN 300 MG CAP PO SCH (21:00)
[2017-10-20] MEDS: AMIODARONE HCL 200 MG TAB PO SCH (22:00)
[2017-10-21] VITALS (72 sets, daily range): BP systolic 89–144; BP diastolic 47–81
--- NOTE | 2017-10-21 00:18 | Consultation ---
DATE OF CONSULTATION: October 20, 2017 REFERRING PHYSICIAN: Dr. Chance Mcnair. REASON FOR CONSULTATION: ST elevation myocardial infarction. HISTORY OF PRESENT ILLNESS: Mr. Mayco Hamlin is a 77-year-old man with history of hypertension and dementia and chronic kidney disease presenting with worsening mental status and acute kidney injury thought to have acute metabolic encephalopathy and delirium secondary to UTI and worsening dementia with acute psychosis with changes in behavior and memory issues. He was also diagnosed with right lung pneumonia. He has a history of atrial fibrillation for which he has been on amiodarone and Eliquis. he also has history of CAD with remote aortocoronary bypass in the with no revascularizations recently. There was a change in status with acute respiratory failure requiring emergent intubation while in his room after a rapid response was called. EKG was found to have diffuse ST elevations predominantly in anterior leads with reciprocal lateral changes. 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 PAST MEDICAL HISTORY: As per HPI. PAST SURGICAL HISTORY: Also includes AICD placement. ALLERGIES: PER EMR. HOME MEDICATIONS: Please see medication reconciliation form. SOCIAL HISTORY: No alcohol, drugs or smoking. FAMILY HISTORY: Noncontributory. PHYSICAL EXAMINATION VITAL SIGNS: Temperature 97.3, heart rate 135, respiratory rate 20 on vent support, blood pressure 106/59. Telemetry with atrial fibrillation and rapid ventricular response and ST elevations on EKG. O2 98% on ventilator support, sedated, intubated. CHEST: With coarse breath sounds. CARDIOVASCULAR: Irregularly irregular rate and rhythm. Normal S1 and S2. Systolic ejection murmur 2/6. S3 positive. ABDOMEN: Soft. EXTREMITIES: Trace edema. Warm distal extremities. CARDIOVASCULAR MEDICATIONS: Reviewed including fenofibrate, Eliquis, last dose given last night, metoprolol succinate 100 mg nightly, clopidogrel 75 mg daily, amiodarone 200 mg nightly. STUDIES: EKG as described above. White blood cells 13.9, hemoglobin 10.4, platelets 521,000. INR 1.8. Sodium 131, potassium 4.2, chloride 103, bicarbonate 15, BUN 15, creatinine 1.01, glucose 144, calcium 7.8, total bilirubin 1, AST 294, ALT 101. Last troponin I was 0.174 at 3:15 p.m. today. BNP 858. Albumin low at 1.7 with a total protein of 4.6. albumin low at 1.7 with a total protein of 4.6. ABGs this a.m. was 7.32/32/86. Chest x-ray with interval placement of right IJ line as well as ET tube, single lead AICD, bilateral interstitial opacity and alveolar opacities representing pulmonary edema. ASSESSMENT 1. Acute ST elevation myocardial infarction. 2. Atrial fibrillation. 3. Acute respiratory failure. 4. Recent acute kidney injury on chronic kidney disease. 5. Dementia complicated with delirium. 6. Urinary tract infection. 7. Coronary artery disease with history of prior aortocoronary bypass. 8. Paroxysmal atrial fibrillation. RECOMMENDATIONS: Emergent coronary angiography and possible intervention. Will be high risk for bleeding in the setting of Eliquis being provided last night. Will take adequate precautions. Further recommendations to follow. Job#: [id number] GH
[2017-10-21 05:13] LABS: BASOPHILS % 0.2 % (0.0-1.0); HEMATOCRIT 33.9 % (38.2-49.6); HEMOGLOBIN 11.3 g/dL (14.0-18.0); LYMPHOCYTES # (AUTO) 0.3 (1.0-3.2); LYMPHOCYTES % 2.3 % (18.0-39.1); MEAN CORPUSCULAR HEMOGLOBIN 29.7 pg (28-32); MEAN CORPUSCULAR HGB CONC 33.3 g/dL (31-35); MEAN CORPUSCULAR VOLUME 89.2 fL (81-99); MONOCYTES # (AUTO) 0.6 (0.2-0.8); MONOCYTES % 4.6 % (4.4-11.3); NEUTROPHILS # (AUTO) 11.5 (2.1-6.9); NEUTROPHILS % 91.6 % (38.7-80.0); PLATELET COUNT 532 x10e3/uL (140-360); RED CELL DISTRIBUTION WIDTH 15.5 % (11.7-14.4)
[2017-10-21 05:29] LABS: ANION GAP 18.5 mmol/L (8-16); CALCIUM 8.3 mg/dL (8.4-10.2); CREATININE, SERUM 1.84 mg/dL (0.72-1.25); POTASSIUM 4.5 mmol/L (3.5-5.1)
[2017-10-21 05:36] LABS: CREATINE KINASE MB 1.6 ng/mL (0.00-5.00)
--- NOTE | 2017-10-21 06:53 | Diagnostic Imaging Report ---
EXAM: CHEST SINGLE (PORTABLE), AP 1 view DATE: 10/21/2017 5:47 AM Time stamp on exam: 0557 hours INDICATION: Intubated COMPARISON: AP view of the chest October 14, 2017 FINDINGS: LINES/TUBES: Interval placement of right internal jugular vein central line with tip at the cavoatrial junction. Endotracheal tube 3 cm above the maggi. Nasal/orogastric tube tip in the body of the stomach. Left approach single lead cardiac device. LUNGS: Bilateral pulmonary edema PLEURA: Indeterminate for small layering pleural effusions. No pneumothorax. HEART AND MEDIASTINUM: Mild enlargement of the cardiac mediastinal silhouette. BONES AND SOFT TISSUES: Median sternotomy wires. IMPRESSION: Interval development of diffuse bilateral pulmonary edema. Interval placement of right internal jugular vein central line, endotracheal tube and nasal/orogastric tube. Signed by: Dr. Yoli Pond M.D. on 10/21/2017 6:50 AM
--- NOTE | 2017-10-21 07:59 | Operative Report ---
DATE OF PROCEDURE: October 20, 2017 PROCEDURE INDICATION: Anterior ST elevation myocardial infarction and atrial fibrillation with rapid ventricular response on EKG in the setting of acute respiratory failure and rapid response being called. The patient with history of coronary artery disease with prior bypass. PROCEDURES PERFORMED 1. Left heart catheterization. 2. Selective MALONEY to left anterior descending angiography. 3. Selective saphenous vein graft to right coronary artery angiography. 4. Selective saphenous vein graft to obtuse marginal versus diagonal angiography. 5. Aortic arch aortography. 6. Right common femoral artery 6-Egyptian Angio-Seal closure. COMPLICATIONS: None. ESTIMATED BLOOD LOSS: Less than 15 mL. PROCEDURE SUMMARY: The patient was emergently brought to the cardiac catheterization laboratory for coronary angiography and possible intervention in the setting of ST elevation on EKG. Discussions with family were performed preprocedure. Using Micropuncture, a single anterior stick was used to the right common femoral artery for 6-Egyptian sheath placement. All catheters were railed over a wire into their respective positions. GL4, 6-Egyptian catheter was used for engagement of the left main. A GL4, 6-Egyptian catheter was used to engagement of the right coronary artery, the saphenous vein graft to RCA, and the saphenous vein graft to OM versus diagonal, which was occluded and the MALONEY to LAD for selective angiography in multiple views. The following findings were noted: 1. Left main large in caliber with luminal irregularities, gives off on LAD and circumflex. 2. The LAD is proximally clear at 100%. Mid to distal LAD fills via patent MALONEY to LAD. 3. Circumflex large in caliber. The 1st obtuse marginal has 40% proximal stenosis. Distal to obtuse marginal to circumflex has 50% stenosis. Two additional obtuse marginals arise from the circumflex. Collaterals filling the RPDA and RPLV field via circumflex as well as septal perforators from the LAD. 4. The right coronary artery is dominant. It has 100% proximal occlusion with collaterals bridging to the mid portion. Additional 90% and 95% stenosis are in tandem in the mid portion. The distal RCA is 100% occluded. This is a chronic total occlusion. Distal RPDA and RPLV fill via collaterals from the left system. 5. The saphenous vein graft to RCA is 100% occluded. 6. The saphenous vein graft to either obtuse marginal or diagonal is occluded proximally. 7. The MALONEY to LAD is patent with no significant gradient across the subclavian artery proximally on pull back. 8. Right common femoral artery 6-Egyptian Angio-Seal closure was successfully deployed achieving hemostasis. CONCLUSION: 1. Severe multivessel coronary artery disease with occluded proximal left anterior descending. Proximal as well as distal right coronary artery and moderate disease of the circumflex and obtuse marginal with patent MALONEY to left anterior descending and occluded saphenous vein graft to right coronary artery and saphenous vein graft to obtuse marginal/diagonal. 2. Atrial fibrillation. 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 3. Overall, consider this to be demand/supply mismatch in the setting of severe multivessel coronary artery disease and graft disease with atrial fibrillation and rapid ventricular response destabilizing myocardial perfusion. RECOMMENDATIONS: Up-titrate amiodarone. Continue beta deepika. Continue medical aggressive therapy. ICU care. Prolonged bedrest. Job#: [id number]
--- NOTE | 2017-10-21 08:00 | Progress Note ---
DATE: October 21, 2017 TIME: 7:34 a.m. OVERNIGHT: Patient had worsening condition and rapid was called. Patient was coded and he had to be intubated. He underwent catheterization, which showed blockages of all of his grafts except for one. Medical management recommended. Patient is intubated and moved to the ICU. REVIEW OF SYSTEMS: Unobtainable. PHYSICAL EXAMINATION VITAL SIGNS: Reviewed. GENERAL: A tired-appearing man resting in bed. HEENT: ET tube in place. Pupils are dilated and sluggish. CARDIOVASCULAR: Normal S1 and S2. LUNGS: Moderate breath sounds. ABDOMEN: Soft, nontender and nondistended. EXTREMITIES: No edema. SKIN: Dry. PSYCHIATRIC: Unable to assess. NEUROLOGICAL: Moving around in bed, but not interactive. LABS: Reviewed. MEDICATIONS: Reviewed. ASSESSMENT: A 77-year-old man with: 1. Acute metabolic encephalopathy/acute delirium/urinary tract infection. 2. Acute respiratory failure. 3. Severe coronary artery disease with multivessel disease. 4. Dementia with acute psychosis. 5. Right lung pneumonia. 6. Acute kidney injury in the setting of chronic kidney disease, stage 3. 7. Cardiac arrhythmia. 8. Bilateral pulmonary edema. PLAN 1. Vent support per pulmonary service. 2. Rehydrate the patient. 3. Continue amiodarone b.i.d. 4. Patient is on Seroquel. 5. Discontinue gabapentin and memantine at this time. 6. Patient remains on bupropion. Discontinue meclizine. 7. Bilateral pulmonary edema. 8. Recheck urinalysis. 9. Patient is on Protonix and Plavix. Any further anticoagulation, I will defer to cardiology. 10. I have discussed case with the family member at bedside. Critical care time more than 35 minutes. Job#: [id number] CA
--- NOTE | 2017-10-21 08:06 | Progress Note ---
DATE: October 20, 2017 TIME: 6:00 a.m. OVERNIGHT: No events. Patient is confused. REVIEW OF SYSTEMS: Unobtainable. PHYSICAL EXAMINATION: VITAL SIGNS: Reviewed. GENERAL APPEARANCE: Tired-appearing man resting in bed. HEENT: Anicteric. CARDIOVASCULAR: Normal S1 and S2. LUNGS: Bilateral breath sounds. ABDOMEN: Soft, nontender, nondistended. EXTREMITIES: No edema. SKIN: Dry. PSYCHIATRIC: Flat affect. NEUROLOGICAL: Confused. LABS: Reviewed. MEDICATIONS: Reviewed. ASSESSMENT: A 77-year-old man: 1. Acute metabolic encephalopathy/acute delirium. 2. Urinary tract infection. 3. Acute transaminitis. 4. Dementia with acute psychosis. 5. Right lung pneumonia. 6. Acute kidney injury in the setting of chronic kidney disease, stage 3. 7. Cardiac arrhythmia. 8. Abdominal pain. PLAN: 1. Continue supportive care. 2. Continue antibiotics. 3. Monitor closely. 4. Fall precaution. 5. Skilled facility evaluation. 6. Patient on apixaban for cardiac arrhythmia. 7. Prophylaxis. Continue regimen. Job#: [id number]
[2017-10-21] MEDS ORDERED: SODIUM CHLORIDE 0.9% 1000ML 1,000 ML ONE (08:34)
[2017-10-21] MEDS: QUETIAPINE FUMARATE 25 MG TAB PO SCH (09:00)
[2017-10-21] MEDS: BUPROPION HCL 150 MG TABCR PO SCH (09:00)
[2017-10-21] MEDS: VILAZODONE 40 MG PO SCH (09:00)
[2017-10-21] MEDS: CLOPIDOGREL BISULFATE 75 MG TAB PO SCH (09:31)
[2017-10-21] MEDS: FENOFIBRATE 145 MG TAB PO SCH (09:31)
[2017-10-21] MEDS: ASPIRIN 81 MG CHEW TAB PO SCH (09:31)
[2017-10-21] MEDS: AMIODARONE HCL 200 MG TAB PO SCH ×2 (09:31→17:00)
[2017-10-21] MEDS: INSULIN REGULAR, HUMAN 100 UNIT/1 ML 3ML VIAL SQ SCH ×2 (12:00→18:30)
[2017-10-21] MEDS ORDERED: MIDAZOLAM HCL 2 MG/2 ML VIAL IV PRN (13:45)
[2017-10-21] MEDS ORDERED: NOREPINEPHRINE INJ 4 MG/4 ML ONE (13:55)
[2017-10-21] MEDS ORDERED: DEXTROSE 5% 250 ML BAG IV ONE (13:55)
[2017-10-21] MEDS ORDERED: SODIUM CHLORIDE 0.9% 1000 ML BAG ONE (13:55)
[2017-10-21] MEDS ORDERED: SODIUM CHLORIDE FLUSH 10 ML SYR ONE (13:55)
[2017-10-21 13:58] LABS: CREATINE KINASE MB 1.5 ng/mL (0.00-5.00)
[2017-10-21] MEDS ORDERED: DEXTROSE 5% 1,000 ML IV SCH (14:00)
[2017-10-21] MEDS ORDERED: DOXYCYCLINE 100MG/NS 100ML 100 ML IV SCH (14:00)
[2017-10-21] MEDS ORDERED: DOXYCYCLINE HYCLATE TABLET 100 MG TAB PO SCH (14:30)
[2017-10-21] MEDS: LEVOTHYROXINE SODIUM 50 MCG TAB PO SCH (14:39)
[2017-10-21] MEDS: PANTOPRAZOLE 40 MG 10ML VIAL IV SCH (14:43)
--- NOTE | 2017-10-21 17:56 | Progress Note ---
DATE: October 21, 2017 CARDIOLOGY PROGRESS NOTE SUBJECTIVE: The patient remains intubated. OBJECTIVE VITAL SIGNS: Temperature 101.9 degrees, pulse 82, respiratory rate 16, blood pressure 130/69, oxygen saturation 93% on mechanical ventilation. LUNGS: Coarse breath sounds. No wheezes or crackles. CARDIOVASCULAR: Normal rate, regular rhythm. A systolic murmur 2/6. Normal S1 and S2. ABDOMEN: Soft. EXTREMITIES: Trace edema. CARDIAC MEDICATIONS: 1. Levothyroxine 50 mcg p.o. daily. 2. Aspirin 81 mg p.o. daily. 3. Amiodarone 400 mg p.o. b.i.d. 4. Fenofibrate 145 mg p.o. daily. 5. Plavix 75 mg p.o. daily. 6. Metoprolol tartrate 100 mg p.o. nightly. 7. Furosemide 60 mg IV q.12 h. LABORATORY DATA: WBC 12.57, hemoglobin 11.3, hematocrit 33.9, platelets 532,000, sodium 135, potassium 4.5, chloride 104, CO2 of 17, BUN 25, creatinine 1.84. Troponin 0.606. Blood culture growing gram-positive cocci in chains. TELEMETRY: Normal sinus rhythm. IMPRESSION 1. Demand ischemia in the setting of atrial fibrillation with rapid ventricular response and coronary artery disease with MALONEY to LAD and severe [place] multivessel disease. 2. Atrial fibrillation, currently normal sinus rhythm. 3. Acute respiratory failure, status post intubation. 4. Acute kidney injury on chronic kidney disease. 5. Gram-positive cocci bacteremia. 6. Urinary tract infection. 7. Dementia complicated by delirium. 8. Coronary artery disease, patent MALONEY to LAD, but occluded saphenous vein graft with severe [place]jas multivessel disease. RECOMMENDATIONS: Continue current cardiac medications. Antibiotics per primary service. Resume Eliquis. Thank you for this consult. We will continue to follow. Job#: [id number]
[2017-10-21] MEDS ORDERED: VANCOMYCIN 1GM/NS 250 ML 250 ML IV ONE (19:45)
[2017-10-21] MEDS ORDERED: MEROPENEM 500MG 500 MG in SODIUM CHLORIDE 0.9% 50ML 50 ML IV SCH (22:00)
[2017-10-21] MEDS: PRAVASTATIN 20 MG TAB PO SCH (22:05)
[2017-10-21] MEDS: FUROSEMIDE INJ 10 MG/ML 4 ML VIAL IV SCH (22:05)
[2017-10-21] MEDS: METOPROLOL SUCCINATE 50 MG TAB XL PO SCH (22:06)
[2017-10-21] MEDS: MEROPENEM 500 MG VIAL IV SCH (22:06)
[2017-10-22] VITALS (47 sets, daily range): BP systolic 80–143; BP diastolic 51–91
[2017-10-22] MEDS: INSULIN REGULAR, HUMAN 100 UNIT/1 ML 3ML VIAL SQ SCH ×4 (00:40→18:00)
[2017-10-22] MEDS: MEROPENEM 500 MG VIAL IV SCH ×3 (05:15→23:26)
[2017-10-22 05:36] LABS: BASOPHILS % 0.1 % (0.0-1.0); HEMATOCRIT 31.3 % (38.2-49.6); HEMOGLOBIN 10.7 g/dL (14.0-18.0); LYMPHOCYTES # (AUTO) 0.3 (1.0-3.2); LYMPHOCYTES % 3.8 % (18.0-39.1); MEAN CORPUSCULAR HEMOGLOBIN 29.6 pg (28-32); MEAN CORPUSCULAR HGB CONC 34.2 g/dL (31-35); MEAN CORPUSCULAR VOLUME 86.7 fL (81-99); MONOCYTES # (AUTO) 0.4 (0.2-0.8); MONOCYTES % 5.4 % (4.4-11.3); NEUTROPHILS # (AUTO) 6.7 (2.1-6.9); PLATELET COUNT 486 x10e3/uL (140-360); RED BLOOD COUNT 3.61 x10e6/uL (4.3-5.7); RED CELL DISTRIBUTION WIDTH 15.5 % (11.7-14.4)
[2017-10-22 06:05] LABS: ALBUMIN 1.6 g/dL (3.5-5.0); ALBUMIN/GLOBULIN RATIO 0.5 (0.8-2.0); ANION GAP 16.2 mmol/L (8-16); CALCIUM 7.7 mg/dL (8.4-10.2); CREATININE, SERUM 3.97 mg/dL (0.72-1.25); MAGNESIUM 1.3 MG/DL (1.3-2.1); POTASSIUM 4.2 mmol/L (3.5-5.1)
--- NOTE | 2017-10-22 06:39 | Diagnostic Imaging Report ---
EXAM: CHEST SINGLE (PORTABLE), AP 1 view DATE: 10/22/2017 5:00 AM Time stamp on exam: 0605 hours INDICATION: Congestive heart failure COMPARISON: AP view of the chest October 21, 2017 FINDINGS: LINES/TUBES: Stable position endotracheal tube, right internal jugular vein central line, nasal/orogastric tube, left approach single lead cardiac device. LUNGS: Stable pulmonary edema bilaterally PLEURA: Indeterminate for small layering pleural effusions. No pneumothorax. HEART AND MEDIASTINUM: Stable appearance BONES AND SOFT TISSUES: No acute findings. IMPRESSION: Stable pulmonary edema. Signed by: Dr. Yoli Pond M.D. on 10/22/2017 6:35 AM
[2017-10-22 07:35] LABS: BAND NEUTROPHILS % (MANUAL) 7 %; LYMPHOCYTES % (MANUAL) 5 % (19-48); MONOCYTES % (MANUAL) 3 % (3.4-9.0); NEUTROPHILS % (MANUAL) 85 % (40-74); NUCLEATED RED BLOOD CELLS 1
[2017-10-22 07:36] LABS: ANISOCYTOSIS SLIGHT; HYPOCHROMASIA SLIGHT; PLATELET ESTIMATE SLIGHTLY INCREASED; PLATELET MORPHOLOGY COMMENT FEW GIANT; RBC MORPHOLOGY COMMENT NORMAL; TEAR DROP CELLS FEW
--- NOTE | 2017-10-22 08:14 | Progress Note ---
DATE: October 22, 2017 TIME: 7:20 a.m. OVERNIGHT: Remains on the vent and 80% FIO2. REVIEW OF SYSTEMS: Unobtainable. PHYSICAL EXAMINATION VITAL SIGNS: Reviewed. GENERAL: A tired-appearing man resting in bed. HEENT: ET tube is in place. CARDIOVASCULAR: Normal S1 and S2. LUNGS: He has moderate breath sounds and mildly coarse. ABDOMEN: Soft and nontender. EXTREMITIES: No edema. SKIN: Dry. PSYCHIATRIC: Unable to assess. NEUROLOGICAL: Moving his extremities, but not interactive. LABS: Reviewed. MEDICATIONS: Reviewed. ASSESSMENT: This is a 77-year-old man with: 1. Acute metabolic encephalopathy/acute delirium/urinary tract infection. 2. Acute respiratory failure. 3. Severe coronary artery disease with multivessel disease. 4. Dementia with acute psychosis. 5. Right lung pneumonia. 6. Acute kidney injury in the setting of chronic kidney disease, stage 3. 7. Cardiac arrhythmia. 8. Bilateral pulmonary edema. 9. Gram-positive bacteremia. PLAN 1. Continue vent support. Currently, on 80% FIO2, which is an increase from yesterday from 60. 2. Continue amiodarone. 3. Continue meropenem and . Give patient 1 dose of vancomycin overnight. Will follow up cultures. He does have gram-positive cocci in blood cultures. 4. Patient is on IV Lasix 60 mg IV q.12 h. 5. Continue Plavix, aspirin, fenofibrate, metoprolol for treatment of severe coronary artery disease, multivessel. 6. Patient also is on buproprion for mood. He receives midazolam p.r.n. and other medications. 7. Follow up cultures. 8. Critical care time more than 35 minutes. Job#: [id number] [place]
[2017-10-22] MEDS: ASPIRIN 81 MG CHEW TAB PO SCH (08:24)
[2017-10-22] MEDS: FUROSEMIDE INJ 10 MG/ML 4 ML VIAL IV SCH ×3 (08:24→23:26)
[2017-10-22] MEDS: AMIODARONE HCL 200 MG TAB PO SCH ×2 (08:24→15:09)
[2017-10-22] MEDS: VILAZODONE 40 MG PO SCH (08:24)
[2017-10-22] MEDS: PANTOPRAZOLE 40 MG 10ML VIAL IV SCH (08:24)
[2017-10-22] MEDS: CLOPIDOGREL BISULFATE 75 MG TAB PO SCH (08:24)
[2017-10-22] MEDS: BUPROPION HCL 150 MG TABCR PO SCH (08:24)
[2017-10-22] MEDS: FENOFIBRATE 145 MG TAB PO SCH (08:24)
--- NOTE | 2017-10-22 08:57 | Consultation ---
DATE OF CONSULTATION: October 21, 2017 PULMONARY/CRITICAL CARE MEDICINE CONSULT REFERRING PHYSICIAN AND HOSPITAL PHYSICIAN: Dr. Chance Mcnair REASON FOR REFERRAL: Acute respiratory failure. HISTORY: Mr. Hamlin is a pleasant 77-year-old gentleman with acute respiratory failure. Patient was admitted to [facility] on October 15, 2017. Patient came to the hospital with altered mental status. He was found to have urinary tract infection. He was also requiring medicines due to agitation and delirium. Patient was also noted to have right lung pneumonia. He has history of atrial fibrillation. The day prior to admission he was found with atrial fibrillation, rapid rate. He was having diffuse ST elevation predominantly in the anterior leads with reciprocal lateral changes. Emergent consultation was performed where the catheterization team was activated in the cardiac lab. Patient went in emergently for this procedure and it was seemed that he had multiple high-grade disease noted, although there were some patent grafts and a few patent arteries that were douglas noting his history of bypass surgery. The patient converted to sinus rhythm in the catheterization lab with resolution of ST changes. Patient improved in this respect, but it was noted that he was having more dyspnea. He was intubated and came to the ICU. Chest x-ray confirmed pulmonary edema pattern. I am consulted. PAST MEDICAL HISTORY: Acute kidney injury in setting of CKD by history, diabetes, Alzheimer dementia, hypothyroidism, coronary artery disease with history of CABG, sick sinus syndrome status post permanent pacemaker, hypertension, unspecified psychosis, severe anemia. MEDICATIONS: Medication list reviewed per electronic record. Antibiotics included azithromycin and ceftriaxone. Bupropion other medicines were amiodarone and levothyroxine and pravastatin. He is on Plavix. Other medicines per record. ALLERGIES: NO KNOWN DRUG ALLERGIES. SOCIAL HISTORY: No smoking, no drinking, no drugs. 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 FAMILY HISTORY: Noncontributory to this. REVIEW OF SYSTEMS: Cannot get as he is intubated. OBJECTIVE: VITAL SIGNS: Afebrile, vitals signs noted per electronic record. GENERAL: In no acute distress, but he is having excess work of breathing on ventilator, awake. HEENT: Normocephalic, atraumatic. NECK: Supple. Throat midline. LUNGS: Bilateral air entry, few rhonchi, few crackles. CARDIOVASCULAR: S1 and S2. No murmurs, rubs, or gallops. ABDOMEN: Soft, nontender. EXTREMITIES: No clubbing, no cyanosis, there is no edema. INTEGUMENT: No rash, no purpura. LABS: Currently 4.5 potassium, 1.8 creatinine, 25 BUN. 12.5 white count, 34 hematocrit. 1.86 INR. IMPRESSION AND PLAN: 1. Acute respiratory failure, intubated. 2. Flash pulmonary edema. 3. Atrial fibrillation with rapid ventricular rate. 4. Treat as unstable/stable angina due to high-grade coronary artery disease. 5. Known coronary artery disease and history of coronary artery bypass graft. 6. History of sick sinus syndrome status post pacemaker placement. 7. Diabetes. 8. Chronic kidney disease with acute kidney injury. 9. Dementia. 10. Hypothyroidism. 11. Hypertension. 12. Admit with pneumonia. 13. Admit with urinary tract infection. Patient will continue on ventilator. Will initiate diuresis slowly to allow the heart to adjust. However, if we needed to go faster, we can start Lasix high dose such as in a drip. As the chest x-ray improves, we hope for extubation in the earliest possible. Continue antibiotics. Adjust medicines for cardiac protection. Patient had a fever and will follow this closely as this could be related to the heart catheterization or could be a new process. I spent greater than 30 minutes in direct care in working with Mr. Hamlin. Multiple coordination and return to the intensive care unit to discuss with nursing and also review of the record. I would like to thank Dr. Mcnair for the opportunity to take care of Mr. Hamlin. Please call for questions. Job#: [id number]
[2017-10-22] MEDS ORDERED: SODIUM BICARBONATE 8.4% IV SCH (10:23)
[2017-10-22] MEDS ORDERED: DEXTROSE 5% IV SCH (10:23)
--- NOTE | 2017-10-22 10:36 | Progress Note ---
DATE: October 22, 2017 PULMONARY MEDICINE PROGRESS NOTE SUBJECTIVE: Mayco Hamlin was seen and examined at bedside. Had 2.6 L in, 0.6 L out, and 625 mL was via the urine. The patient remains with fevers. Patient with lower blood pressure today consistent with fulminant acute kidney injury, as the creatinine is elevated significantly. White blood cell count, however, has gotten much better. LFTs significantly off. Blood cultures showing positivity. REVIEW OF SYSTEMS: Cannot get as he is on the ventilator. OBJECTIVE VITALS: Currently afebrile, vitals signs noted per electronic record. GENERAL: No acute distress on mild sedation. HEENT: Normocephalic, atraumatic. NECK: Supple. Throat midline. LUNGS: Bilateral air entry, a few rhonchi, a few crackles. CARDIOVASCULAR: S1 and S2. No murmurs, rubs or gallops. ABDOMEN: Soft, nontender. EXTREMITIES: No clubbing, no cyanosis. There is very small edema. INTEGUMENT: No rash, no purpura. LABS: 4.2 potassium, 17 bicarbonate, 45 BUN, 3.9 creatinine, 7.4 white count, 486 platelets, 31 hematocrit. INR is 1.86. AST 5600, ALT 2049, alkaline phosphatase 120, total bilirubin 2.0. Chest radiography with stable pulmonary edema. IMPRESSION AND PLAN 1. Acute respiratory failure. 2. Flash pulmonary edema due to acute coronary syndrome. 3. Significant coronary artery disease. 4. Atrial fibrillation with rapid ventricular rate leading to myocardial ischemia. 5. Febrile syndrome, treat as sepsis. 6. Enterococcal bacteremia. 7. Acute kidney injury, mostly ischemic and hypotensive related to the ventricular tachycardia/atrial fibrillation. 8. Shock liver, acute liver injury. At this time, will continue current treatment. Continue to support the kidneys and give diuretics to maintain them open. Patient remains in critical condition at this time. Keep on ventilator and try to ride out the patient until the liver enzymes improve. Will follow along closely. Give trial of vitamin K medicine. Continue sedation for comfort. Job#: [id number]
[2017-10-22] MEDS ORDERED: PHYTONADIONE 10 MG/ML AMP SQ SCH (11:00)
[2017-10-22] MEDS: LACTULOSE SYRUP 20 GM/30 ML UDC PO PRN (12:00)
[2017-10-22] MEDS: SODIUM BICARBONATE 8.4% 100 ML in DEXTROSE 5% 1,000 ML IV SCH (14:47)
[2017-10-22 18:07] LABS: CREATININE,URINE RANDOM 16.37 mg/dL (63-166)
--- NOTE | 2017-10-22 19:01 | Progress Note ---
DATE: October 22, 2017 CARDIOLOGY PROGRESS NOTE SUBJECTIVE: The patient remains intubated. He is not responsive. OBJECTIVE VITAL SIGNS: Temperature 101.6 degrees, pulse 96, respiratory rate 28, blood pressure 121/67, oxygen saturation 100% on mechanical ventilation. GENERAL: Intubated, not responsive. LUNGS: Coarse breath sounds. No wheezes or crackles. CARDIOVASCULAR: Normal rate, regular rhythm. A systolic murmur 2/6. Normal S1 and S2. ABDOMEN: Soft. EXTREMITIES: Trace edema. CARDIAC MEDICATIONS: 1. Levothyroxine 50 mcg p.o. daily. 2. Aspirin 81 mg p.o. daily. 3. Amiodarone 400 mg p.o. b.i.d. 4. Fenofibrate 145 mg p.o. daily. 5. Plavix 75 mg p.o. daily. 6. Metoprolol succinate 100 mg p.o. nightly. 7. Furosemide 80 mg IV q.8 h. LABORATORY DATA: WBC 7.46, hemoglobin 10.7, hematocrit 31.3, platelets 486,000, sodium 131, potassium 4.2, chloride 102, CO2 of 17, BUN 45, creatinine 3.97, AST 5648, ALT 2049. Blood culture growing Enterococcus species. TELEMETRY: Normal sinus rhythm, PACs. IMPRESSION 1. Demand ischemia in the setting of atrial fibrillation with rapid ventricular response and coronary artery disease with MALONEY to LAD and severe [place] multivessel disease. 2. Atrial fibrillation, currently normal sinus rhythm. 3. Acute respiratory failure, status post intubation. 4. Acute kidney injury on chronic kidney disease. 5. Enterococcus bacteremia. 6. Urinary tract infection. 7. Dementia complicated by delirium. 8. Coronary artery disease, patent MALONEY to LAD, but occluded saphenous vein graft and severe [place] multivessel disease. 9. Elevated liver function tests. RECOMMENDATIONS: Stop amiodarone in the setting of elevated LFTs. Continue current cardiac medications otherwise. Given acute kidney injury and shock liver, hold anticoagulation. Anticoagulation per primary service given Enterococcus bacteremia. We will review the echocardiogram images again given his Enterococcus bacteremia to evaluate if there is any evidence of vegetation. If it is a technically difficult study, we will discuss SADIA once the patient's condition improves. Currently, he is not a good candidate given his significant oxygen requirement and intubation. Thank you for this consult. We will continue to follow. Job#: [id number] [place]
[2017-10-22] MEDS: PRAVASTATIN 20 MG TAB PO SCH (21:00)
[2017-10-22] MEDS ORDERED: METOPROLOL TARTRATE 50 MG TAB PO SCH (22:00)
[2017-10-22] MEDS: MORPHINE SULFATE 5 MG/ML VIAL IV PRN (23:30)
[2017-10-23] VITALS (47 sets, daily range): BP systolic 54–129; BP diastolic 31–94
[2017-10-23] MEDS: MORPHINE SULFATE 5 MG/ML VIAL IV PRN ×2 (04:03→08:00)
--- NOTE | 2017-10-23 05:34 | Diagnostic Imaging Report ---
EXAM: CHEST SINGLE (PORTABLE), AP 1 view DATE: 10/23/2017 5:00 AM Time stamp on exam: 0514 hours INDICATION: CHF COMPARISON: AP view of the chest October 22, 2017 FINDINGS: LINES/TUBES: Stable position endotracheal tube, right internal jugular vein central line, left approach cardiac device, nasal/orogastric tube LUNGS: Pulmonary edema and bibasilar atelectasis PLEURA: Indeterminate for small bilateral layering pleural effusions. HEART AND MEDIASTINUM: Stable appearance BONES AND SOFT TISSUES: No interval change IMPRESSION: No interval change Signed by: Dr. Yoli Pond M.D. on 10/23/2017 5:30 AM
[2017-10-23 05:56] LABS: BASOPHILS % 0.4 % (0.0-1.0); EOSINOPHILS % 0.1 % (0.0-6.0); HEMATOCRIT 31.5 % (38.2-49.6); HEMOGLOBIN 10.8 g/dL (14.0-18.0); LYMPHOCYTES # (AUTO) 0.4 (1.0-3.2); LYMPHOCYTES % 4.5 % (18.0-39.1); MEAN CORPUSCULAR HGB CONC 34.3 g/dL (31-35); MEAN CORPUSCULAR VOLUME 84.5 fL (81-99); MONOCYTES # (AUTO) 0.5 (0.2-0.8); MONOCYTES % 4.9 % (4.4-11.3); NEUTROPHILS # (AUTO) 8.8 (2.1-6.9); NEUTROPHILS % 89.2 % (38.7-80.0); PLATELET COUNT 432 x10e3/uL (140-360); RED BLOOD COUNT 3.73 x10e6/uL (4.3-5.7); RED CELL DISTRIBUTION WIDTH 15.8 % (11.7-14.4)
[2017-10-23 06:06] LABS: INR 1.67; PROTHROMBIN TIME 20.6 seconds (11.9-14.5)
[2017-10-23 06:07] LABS: PARTIAL THROMBOPLASTIN TIME 39.3 seconds (23.8-35.5)
[2017-10-23 06:18] LABS: ALBUMIN 1.5 g/dL (3.5-5.0); ALBUMIN/GLOBULIN RATIO 0.5 (0.8-2.0); ANION GAP 17.8 mmol/L (8-16); CALCIUM 7.5 mg/dL (8.4-10.2); CREATININE, SERUM 4.9 mg/dL (0.72-1.25); MAGNESIUM 1.7 MG/DL (1.3-2.1); PHOSPHORUS 5.1 MG/DL (2.3-4.7); POTASSIUM 3.8 mmol/L (3.5-5.1)
[2017-10-23] MEDS: LEVOTHYROXINE SODIUM 50 MCG TAB PO SCH (06:26)
[2017-10-23] MEDS: MEROPENEM 500 MG VIAL IV SCH (06:26)
[2017-10-23] MEDS: FUROSEMIDE INJ 10 MG/ML 4 ML VIAL IV SCH (06:26)
[2017-10-23] MEDS: INSULIN REGULAR, HUMAN 100 UNIT/1 ML 3ML VIAL SQ SCH ×2 (06:27)
--- NOTE | 2017-10-23 06:55 | Progress Note ---
DATE: October 23, 2017 PULMONARY MEDICINE PROGRESS NOTE SUBJECTIVE: Mr. Hamlin was seen and examined at the bedside. Continued intubated at this time. On ventilator support. Reportedly, there was some V-tach at 140 beats per minute per nursing. He also had continuous temperature to 102 degrees. Neurologic exam is a little bit better today, and he is possibly having some responsiveness to external stimuli. REVIEW OF SYSTEMS: Cannot get as he is intubated. OBJECTIVE VITALS: Afebrile. Vital signs are somewhat unstable per electronic record. On pressors right now. HEENT: Normocephalic and atraumatic. NECK: Supple. Throat midline. LUNGS: Bilateral air entry. Rare rhonchi. CARDIOVASCULAR: S1 and S2. No murmurs, rubs or gallops. ABDOMEN: Soft and nontender. EXTREMITIES: No clubbing. No cyanosis. There is very small edema. INTEGUMENT: No rash. No purpura. LABS: No further updates. Labs are pending for today. IMPRESSION AND PLAN 1. Acute respiratory failure. 2. Shock liver: Acute liver failure. 3. Acute kidney failure with sustained urine right now. 4. Encephalopathy due to largely either acute liver failure and possibly other metabolic insults or other reasons. 5. Wide complex tachycardia. 6. Reported dementia at baseline. 7. Infections under evaluation, including urine and possibly pneumonia. 8. Pulmonary edema. Continue to follow up with cardiology. Optimize the tachyarrhythmia which he had before. Continue to follow up his vitals and ensure good sustained blood pressure to allow the liver to heal. For now, he is on lactulose for easily what may be metabolic encephalopathy due to liver failure. Await the liver to regenerate and heal. Continue blood thinners. Continue other medicines, including antibiotics for now. Will follow along closely. Family has notified staff that they will be considering withdrawal. I updated the family members with this issue, although some questions remain. Will follow up with the family for their directives. For now, continue aggressive care. Job#: [id number] GHAZALA
[2017-10-23] MEDS: PANTOPRAZOLE 40 MG 10ML VIAL IV SCH (08:39)
[2017-10-23] MEDS: CLOPIDOGREL BISULFATE 75 MG TAB PO SCH (08:40)
[2017-10-23] MEDS: ASPIRIN 81 MG CHEW TAB PO SCH (08:40)
[2017-10-23] MEDS: FENOFIBRATE 145 MG TAB PO SCH (08:40)
[2017-10-23] MEDS: VILAZODONE 40 MG PO SCH (08:40)
[2017-10-23] MEDS: BUPROPION HCL 150 MG TABCR PO SCH (08:41)
[2017-10-23] MEDS: LACTULOSE SYRUP 20 GM/30 ML UDC PO PRN (08:44)
[2017-10-23 10:43] LABS: LYMPHOCYTES % (MANUAL) 5 % (19-48); MONOCYTES % (MANUAL) 11 % (3.4-9.0); NEUTROPHILS % (MANUAL) 84 % (40-74)
[2017-10-23 10:44] LABS: PLATELET ESTIMATE SLIGHTLY INCREASED; PLATELET MORPHOLOGY COMMENT NORMAL; RBC MORPHOLOGY COMMENT NORMAL
--- NOTE | 2017-10-23 11:19 | Progress Note ---
DATE: October 23, 2017 SUBJECTIVE: Mr. Hamlin' care was discussed with Dr. Mcnair. He is being extubated to BiPAP with potential for comfort measures. OBJECTIVE VITAL SIGNS: Temperature 99. Blood pressure 104/69. Heart rate 113. CARDIOVASCULAR: Irregularly irregular rhythm. LUNGS: Crackles bilaterally. ASSESSMENT 1. Atrial fibrillation. 2. Coronary artery disease. 3. Acute respiratory failure. RECOMMENDATIONS: I agree with comfort measures as requested by the family. At this point, no active cardiac needs. We will sign off and continue to follow him on an as-needed basis. I thank Dr. Mcnair for this consultation. Job#: [id number]
[2017-10-23] MEDS: SODIUM BICARBONATE 8.4% 100 ML in DEXTROSE 5% 1,000 ML IV SCH (12:35)
--- NOTE | 2017-10-26 10:00 | Diagnostic Imaging Report ---
PROCEDURE:ABDOMINAL ULTRASOUND COMPARISON:None. INDICATIONS:RIKY; elevated liver enzymes. TECHNIQUE: Beckford scale color Doppler ultrasound abdomen FINDINGS: The inferior vena cava and abdominal aorta are obscured. Limited evaluation of the distal abdominal aorta is normal. Limited evaluation of the pancreas, with a small imaged portion of the pancreatic body within normal limits. Right liver span 14.4 cm. Normal parenchymal echogenicity with a smooth margin. Portal vein diameter 0.6 cm. Normal flow direction. Normal gallbladder. Wall thickness 3 mm. Common bile duct diameter 4 mm. Right kidney: 10.2 x 5.6 x 5 cm. Left kidney: 9.8 x 5.9 x 5.6 cm. Normal parenchymal echogenicity. No hydronephrosis, stone or mass. Spleen length 8 cm. Study limitations: Large volume of bowel gas, large patient body habitus and intubation precluding typical sonographic windows. CONCLUSION: 1. No acute abnormality. 2. Specifically, the liver and kidneys are grossly within normal limits. 3. Limited study. Dictated by: Toño Parker M.D. on 10/26/2017 at 10:08 Electronically approved by: Toño Parker M.D. on 10/26/2017 at 10:08
--- NOTE | 2017-10-26 18:54 | Discharge Summary ---
SUMMARY CAUSES OF 1. Pneumonia. 2. Coronary artery disease. HOSPITAL COURSE: Patient was also treated for 1. Acute metabolic encephalopathy with acute delirium and urinary tract infection. 2. Acute respiratory failure. 3. Severe coronary artery disease with multivessel disease. 4. Dementia with acute psychosis. 5. Right lung pneumonia. 6. Acute kidney injury. 7. Chronic kidney disease, stage 3. 8. Cardiac arrhythmia. 9. Bilateral pulmonary edema. 10. Gram-negative bacteremia. The family withdrew care. Patient was extubated and subsequently . LUZ NELSON MD Job#: [id number] CQ
== END 2017-10-23 15:22 | disposition expired | DRG 70 ==
LOC: ER 20:31 → ERHOLD 10-15 00:02 → MED/SURG2 10-15 00:34 → ICU 10-20 16:37
PROVIDERS: ADMIT Internal Medicine; ATTEND Internal Medicine
PROC: 0BH17EZ Insertion of Endotracheal Airway into Trachea, Via Natural or Artificial Opening (ICD-10-PCS; principal; 2017-10-20)
PROC: 5A1945Z Respiratory Ventilation, 24-96 Consecutive Hours (ICD-10-PCS; 2017-10-20)
PROC: 4A023N7 Measurement of Cardiac Sampling and Pressure, Left Heart, Percutaneous Approach (ICD-10-PCS; 2017-10-20)
PROC: B2121ZZ Fluoroscopy of Single Coronary Artery Bypass Graft using Low Osmolar Contrast (ICD-10-PCS; 2017-10-20)
PROC: B2181ZZ Fluoroscopy of Left Internal Mammary Bypass Graft using Low Osmolar Contrast (ICD-10-PCS; 2017-10-20)
PROC: B2111ZZ Fluoroscopy of Multiple Coronary Arteries using Low Osmolar Contrast (ICD-10-PCS; 2017-10-20)
PROC: B2151ZZ Fluoroscopy of Left Heart using Low Osmolar Contrast (ICD-10-PCS; 2017-10-20)
PROC: B3101ZZ Fluoroscopy of Thoracic Aorta using Low Osmolar Contrast (ICD-10-PCS; 2017-10-20)
PROC: 02HV33Z Insertion of Infusion Device into Superior Vena Cava, Percutaneous Approach (ICD-10-PCS; 2017-10-20)
DX: G93.41 Metabolic encephalopathy (principal); J18.9 Pneumonia, unspecified organism; J96.00 Acute respiratory failure, unspecified whether with hypoxia or hypercapnia; I21.11 ST elevation (STEMI) myocardial infarction involving right coronary artery; K72.00 Acute and subacute hepatic failure without coma; N17.9 Acute kidney failure, unspecified; J81.1 Chronic pulmonary edema; E11.22 Type 2 diabetes mellitus with diabetic chronic kidney disease; I48.0 Paroxysmal atrial fibrillation; F02.81 Dementia in other diseases classified elsewhere, unspecified severity, with behavioral disturbance; N39.0 Urinary tract infection, site not specified; I25.110 Atherosclerotic heart disease of native coronary artery with unstable angina pectoris; F05 Delirium due to known physiological condition; T82.858A Stenosis of other vascular prosthetic devices, implants and grafts, initial encounter; G30.9 Alzheimer's disease, unspecified; Z66 Do not resuscitate; Z51.5 Encounter for palliative care; N18.3 Chronic kidney disease, stage 3 (moderate); I12.9 Hypertensive chronic kidney disease with stage 1 through stage 4 chronic kidney disease, or unspecified chronic kidney disease; E03.9 Hypothyroidism, unspecified; Z95.0 Presence of cardiac pacemaker; Z79.01 Long term (current) use of anticoagulants; Z86.73 Personal history of transient ischemic attack (TIA), and cerebral infarction without residual deficits
CPT/HCPCS: 36140; 36200; 36415; 36600; 70450; 71045; 74018; 76700; 77002; 80048; 80053; 81001; 82044; 82140; 82310; 82436; 82550; 82553; 82570; 82805; 82948; 83605; 83735; 83880; 84100; 84132; 84300; 84484; 85007; 85025; 85027; 85379; 85610; 85730; 87040; 87071; 87086; 87186; 87205; 93005; 93306; 93459; 94003; 94660; 96361; 99284; C1769; J0330; J0456; J0696; J1630; J1644; J1940; J2001; J2185; J2250; J2270; J3370; J3430; J7030; J7070; Q9967